=== PATIENT | female | born 1950 | race Caucasian/White ===

== ENCOUNTER 2019-07-29 09:23 | Emergency (ER) | payer OTHER ==
--- NOTE | 2019-07-29 10:32 | RAD REPORT ---
EXAM DESCRIPTION: CT - [id number] - 07/29/2019 10:20 am CLINICAL HISTORY: Fall, head and neck injury COMPARISON: CT head May 30. TECHNIQUE: Axial 5 mm thick images of the head were obtained. Axial 2 mm thick images of the cervic al spine were obtained with sagittal and coronal reconstruction images generated and reviewed. All CT scans are performed using dose optimization technique as appropriate and may include automated exposure control or mA/KV adjustment according to patient size. FINDINGS: No intracranial hemorrhage, mass, edema or acute intracranial finding. No acute cortical based infarc tion identified. No cortical edema or sulcal effacement. There is slight motion degradation present. Patient has prominent atrophy pattern that is primarily bifrontal in location. Advanced chronic ische desirae changes are present in the cerebral white matter, basal ganglia, thalami and probably in the brai nstem. No extra-axial fluid collections. Mastoid air cells and paranasal sinuses are clear. No globe or orbit abnormality seen. Ventricles are prominent and borderline for being out of proportion to the amount of volume loss. Dense arterial tree calcifications are present. Cervical bodies are normal in height. Slight anterior subluxation noted of C3 on C4 and C4 on C5. C5- 6 and C6-7 disc space narrowing present. Patient has bilateral foraminal stenosis at these 2 levels a s well. Subluxation abnormalities can be explained by the degree of facet degenerative change. No fra cture or acute bony abnormality. Central canal detail is inherently limited. No paraspinal mass or hematoma. IMPRESSION: No hemorrhage, edema or acute intracranial finding. Patient has prominent atrophy and chronic ischemic change. Findings are predominantly bifrontal in lo cation. Findings are not substantially different from May 30 imaging. Cervical spine degenerative changes are present as detailed. No fracture or acute finding.
--- NOTE | 2019-07-29 10:38 | RAD REPORT ---
EXAM DESCRIPTION: RAD - Elbow Left 3 View - 07/29/2019 10:21 am CLINICAL HISTORY: fall Trauma, fall, left arm pain COMPARISON: No comparisons FINDINGS: No fracture or dislocation seen.
--- NOTE | 2019-07-29 10:38 | RAD REPORT ---
EXAM DESCRIPTION: RAD - Shoulder Left 2 View - 07/29/2019 10:21 am CLINICAL HISTORY: fall Fall, trauma, pain COMPARISON: No comparisons FINDINGS: Mildly displaced fracture of the proximal left humerus is seen. Glenohumeral joint is inta ct.
--- NOTE | 2019-07-29 10:38 | RAD REPORT ---
EXAM DESCRIPTION: RAD - Chest Single View - 07/29/2019 10:33 am CLINICAL HISTORY: fall Chest pain. COMPARISON: No comparisons FINDINGS: Portable technique limits examination quality. The lungs are grossly clear. The heart is upper limit of normal in size. Fracture the proximal left h umerus is seen.
--- NOTE | 2019-07-29 11:20 | RAD REPORT ---
EXAM DESCRIPTION: RAD - Wrist Left 3 View - 07/29/2019 11:12 am CLINICAL HISTORY: fall Pain COMPARISON: No comparisons FINDINGS: The bones are osteopenic. Prominent degenerative changes are noted first carpometacarpal joint. No acute fracture or subluxation evident.
--- NOTE | 2019-07-29 11:44 | ER ---
Nurse's Notes [facility] Name: Heather Felix Age: 68 yrs Sex: Female : 1950 Arrival Date: 07/29/2019 Time: 09:33 Bed 18 Private MD: Diagnosis: Unspecified fracture of shaft of humerus, left arm Presentation: 07/29 09:36 Presenting complaint: EMS states: reports falling last night around 8 pm, em withdraws from pain on left upper arm, bruising noted to left upper arm, hx of Alzheimer's A\T\Ox0 which is baseline per . Transition of care: patient was not received from another setting of care. Onset of symptoms was July 29, 2019. Risk Assessment: Do you want to hurt yourself or someone else? Patient reports no desire to harm self or others. Initial Sepsis Screen: Does the patient meet any 2 criteria? No. Patient's initial sepsis screen is negative. Does the patient have a suspected source of infection? No. Patient's initial sepsis screen is negative. Care prior to arrival: None. 09:36 Method Of Arrival: EMS: [facility] em 09:40 Acuity: JARED 4 ss Historical: - Allergies: 09:43 No Known Allergies; em - Home Meds: 09:43 Lorazepam Oral [Active]; em - PMHx: 09:43 Dementia; Alzheimers; em - PSHx: 09:43 Hysterectomy; em - Immunization history:: Adult Immunizations up to date. - Social history:: Smoking status: Patient/guardian denies using tobacco. - Ebola Screening: : Patient negative for fever greater than or equal to 101.5 degrees Fahrenheit, and additional compatible Ebola Virus Disease symptoms Patient denies exposure to infectious person Patient denies travel to an Ebola-affected area in the 21 days before illness onset No symptoms or risks identified at this time. Screenin:57 Abuse screen: no apparent signs noted. Nutritional screening: No deficits noted. em Tuberculosis screening: No symptoms or risk factors identified. Fall Risk Fall in past 12 months (25 points). Secondary diagnosis (15 points) Alzheimer's, dementia, Total Apodaca Fall Scale indicates Low Risk Score (25-44 pts). Side Rails Up X 2 Placed close to Nursing Station Frequent Obs/Assesments occuring Family Present and informed to notify staff if they need to leave bedside. Assessment: 09:43 General: Appears in no apparent distress. comfortable, Behavior is calm. Pain: Unable em to use pain scale. Does not appear to understand pain scale. FLACC scale score is 3 out of 10. Neuro: Level of Consciousness is awake, alert, Oriented to none. Cardiovascular: Capillary refill < 3 seconds Patient's skin is warm and dry. Respiratory: Airway is patent Respiratory effort is even, unlabored, Respiratory pattern is regular, symmetrical. Derm: Skin is intact, is thin, Skin is pink, warm \T\ dry. Bruising that is dark purple, on left bicep. Musculoskeletal: Capillary refill < 3 seconds, Range of motion: limited in left shoulder. 09:50 General: The previous assessment is accurate, call light remains within reach. ss 11:00 Reassessment: Patient appears in no apparent distress at this time. respirations even em and unlabored, skin pink warm and dry, family at bedside. Vital Signs: 09:43 BP 148 / 71; Pulse 74; Resp 18; Temp 98.4(A); Pulse Ox 99% on R/A; Pain 3/10; em 11:16 BP 115 / 42; Pulse 77; Resp 18; Temp 98.0(O); Pulse Ox 98% on R/A; mh5 09:43 [facility] (FACES) em ED Course: 09:33 Patient arrived in ED. ss 09:34 Adarsh Lee PA is PHCP. [facility] 09:34 Karen Romero MD is Attending Physician. [facility] 09:36 Wale Banegas LVN is Primary Nurse. em 09:43 Arm band placed on. em 09:54 Triage completed. ss 09:57 Patient has correct armband on for positive identification. Bed in low position. Call em light in reach. Side rails up X2. Adult w/ patient. Pulse ox on. NIBP on. 10:20 CT Head C Spine In Process Unspecified. EDMS 10:22 Shoulder Left (2 View) XRAY In Process Unspecified. EDMS 10:22 Elbow Left 3 View XRAY In Process Unspecified. EDMS 10:28 Chest Single View XRAY In Process Unspecified. EDMS 11:18 Wrist Left (3 View) XRAY In Process Unspecified. EDMS 11:39 Sanjay Patel MD is Referral Physician. jmm 11:45 No provider procedures requiring assistance completed. Patient did not have IV access em during this emergency room visit. 11:45 Sling applied to left arm. em Administered Medications: No medications were administered Outcome: 11:43 Discharge ordered by MD. jmm 11:59 Discharged to home via wheelchair, with family. em 11:59 Condition: good 11:59 Discharge instructions given to patient, family, Instructed on discharge instructions, follow up and referral plans. medication usage, Demonstrated understanding of instructions, follow-up care, medications, Prescriptions given X 2. 12:02 Patient left the ED. em Signatures: Dispatcher [employer] EDMS Adarsh Lee PA PA jmm Munoz, Edgar, RAWHIDE TRIMMER RAWHIDE TRIMMER em Shivani Kitchen RN RN Tatiana Payton 5 Corrections: (The following items were deleted from the chart) 09:57 09:36 Presenting complaint: EMS states: reports falling last night around 8 pm, em withdraws from pain on left upper arm, bruising noted to left upper arm, hx of Alzheimer's A\T\O which is baseline per em
--- NOTE | 2019-07-29 11:45 | EDPHYS ---
Physician Documentation [facility] Name: Heather Felix Age: 68 yrs Sex: Female : 1950 Arrival Date: 07/29/2019 Time: 09:33 Bed 18 Private MD: ED Physician Karen Romero HPI: 07/29 09:56 This 68 yrs old Female presents to ER via EMS with complaints of left arm jmm pain. 09:56 Details of fall: The patient fell from an upright position. Onset: The symptoms/episode jmm began/occurred acutely, last night. Associated injuries: The patient sustained left arm. This is a 68 year old female with a history of dementia that presents to the ED with complaints of left arm pain. states last night hearing a thud against the wall. Noticed bruising to the patient's left shoulder today. Patient is not taking anticoagulants. unsure if patient hit her head. . Historical: - Allergies: 09:43 No Known Allergies; em - Home Meds: 09:43 Lorazepam Oral [Active]; em - PMHx: 09:43 Dementia; Alzheimers; em - PSHx: 09:43 Hysterectomy; em - Immunization history:: Adult Immunizations up to date. - Social history:: Smoking status: Patient/guardian denies using tobacco. - Ebola Screening: : Patient negative for fever greater than or equal to 101.5 degrees Fahrenheit, and additional compatible Ebola Virus Disease symptoms Patient denies exposure to infectious person Patient denies travel to an Ebola-affected area in the 21 days before illness onset No symptoms or risks identified at this time. ROS: 09:56 Constitutional: Negative for fever, chills, and weight loss, Cardiovascular: Negative jmm for chest pain, palpitations, and edema, Respiratory: Negative for shortness of breath, cough, wheezing, and pleuritic chest pain, Abdomen/GI: Negative for abdominal pain, nausea, vomiting, diarrhea, and constipation. 09:56 MS/extremity: Positive for pain. 09:56 All other systems are negative. Exam: 09:56 Constitutional: This is a well developed, well nourished patient who is awake, alert, jmm and in no acute distress. Head/Face: atraumatic. Eyes: EOMI, no conjunctival erythema appreciated ENT: Moist Mucus Membranes Neck: Trachea midline, Supple Chest/axilla: Normal chest wall appearance and motion. Cardiovascular: Regular rate and rhythm. No edema appreciated Respiratory: Normal respirations, no respiratory distress appreciated Abdomen/GI: Non distended, soft Back: Normal ROM Skin: General appearance color normal 09:56 Musculoskeletal/extremity: Nails: bruising noted to the left proximal humeral region, TTP, full radial pulse, NVI. 09:56 Skin: ecchymosis noted to the left proximal upper arm. 09:56 Psych: Behavior/mood is pleasant, cooperative. Vital Signs: 09:43 BP 148 / 71; Pulse 74; Resp 18; Temp 98.4(A); Pulse Ox 99% on R/A; Pain 3/10; em 11:16 BP 115 / 42; Pulse 77; Resp 18; Temp 98.0(O); Pulse Ox 98% on R/A; mh5 09:43 [facility] ([facility]AC[facility]) em Procedures: 11:38 Splinting: Splint applied to left arm using sling, applied by nurse. Examined by me, cayden post splint application: neurovascular intact, 2+ distal pulses palpable, brisk capillary refill noted, Patient tolerated well. MDM: 09:55 Patient medically screened. jmm 11:38 Data reviewed: vital signs, nurses notes. Counseling: I had a detailed discussion with cayden the patient and/or guardian regarding: the historical points, exam findings, and any diagnostic results supporting the discharge/admit diagnosis, radiology results, the need for outpatient follow up, to return to the emergency department if symptoms worsen or persist or if there are any questions or concerns that arise at home. ED course: Patient advised to follow up with ortho for reevaluation. . 07/29 09:56 Order name: Shoulder Left (2 View) XRAY; Complete Time: 10:47 [facility] 07/29 09:56 Order name: Elbow Left 3 View XRAY; Complete Time: 10:47 [facility] 07/29 09:56 Order name: CT Head C Spine; Complete Time: 10:42 [facility] 07/29 10:20 Order name: Chest Single View XRAY; Complete Time: 10:47 [facility] 07/29 10:47 Order name: Wrist Left (3 View) XRAY; Complete Time: 11:34 [facility] 07/29 11:34 Order name: Sling; Complete Time: 11:35 cayden Administered Medications: No medications were administered Disposition: 15:18 Co-signature as Attending Physician, Karen Romero MD. ma2 Disposition: 07/29/19 11:43 Discharged to Home. Impression: Unspecified fracture of shaft of humerus, left arm. - Condition is Stable. - Discharge Instructions: Humerus Fracture Treated With Immobilization, [id number]. - Prescriptions for Tylenol- Codeine #3 300-30 mg Oral Tablet - take 1 tablet by ORAL route every 6 hours As needed; 12 tablet. - Medication Reconciliation Form, Thank You Letter, Antibiotic Education, Prescription Opioid Use form. - Follow up: Sanjay Patel MD; When: 2 - 3 days; Reason: Recheck today's complaints, Continuance of care, Re-evaluation by your physician. Signatures: Dispatcher [employer] EDAdarsh Irvin, MADELIN PA Wale Anaya, SYSTEMS DESIGNER SYSTEMS DESIGNER Heather, MD LINDA Jones ma2 Corrections: (The following items were deleted from the chart) 12:02 11:43 07/29/2019 11:43 Discharged to Home. Impression: Unspecified fracture of shaft of em humerus, left arm. Condition is Stable. Forms are Medication Reconciliation Form, Thank You Letter, Antibiotic Education, Prescription Opioid Use. Follow up: Dr. Sanjay Patel; When: 2 - 3 days; Reason: Recheck today's complaints, Continuance of care, Re-evaluation by your physician. cayden
[2019-07-29 12:09] VITALS: BP 115/42; TEMP 98; O2SAT 98
== END 2019-07-29 12:02 | disposition home or self-care (01) ==
LOC: ER 09:23
PROC: 2W3BX1Z Immobilization of Left Upper Arm using Splint (ICD-10-PCS; principal; 2019-07-29)
DX: S42.302A Unspecified fracture of shaft of humerus, left arm, initial encounter for closed fracture (principal); W06.XXXA Fall from bed, initial encounter; Y93.9 Activity, unspecified; Y92.009 Unspecified place in unspecified non-institutional (private) residence as the place of occurrence of the external cause; G30.9 Alzheimer's disease, unspecified; F02.80 Dementia in other diseases classified elsewhere, unspecified severity, without behavioral disturbance, psychotic disturbance, mood disturbance, and anxiety
CPT/HCPCS: 70450; 71045; 72125; 99284